=== PATIENT | female | born 1985 | race Caucasian/White ===

== ENCOUNTER 2018-10-31 06:27 | Inpatient (IN) | payer OTHER ==
--- NOTE | 2018-10-31 07:32 | PN ---
L&D Outpatient: Visit - Reproductive Information Estimated Due Date: 11/06/18 Gestational Age: 39 Weeks and 1 Days : 5 Para: 1 - Reason for Visit Visit Reason: Evaluation for labor. Reports UCs q 8-10 min. 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 - Patient History Patient History Significant: Yes Patient History Significant For: H/O Migraine with aura Carpal tunnel syndrome H/O frequent UTIs, not in , lifelong sx of urinary stress incontinence Review of Systems Constitutional: Comfortable CV Complaint: No Respiratory: Shortness of Breath: No Gastrointestinal: No Nausea/Vomiting, Normal Bowel Movement Genitourinary: No Dysuria, No Bleeding, No Leaking Fluid Musculoskeletal: Contractions - Pt reports only feeling them q 8-10 min Neurological: No Headache, No Visual Changes Movement: Normal L&D Outpatient: Exam Vitals - Most Recent: Vital Signs: Temp Pulse Resp BP Pulse Ox 98.6 F 71 22 123/78 100 10/31/18 07:25 10/31/18 07:25 10/31/18 07:25 10/31/18 07:25 10/31/18 07:25 - Cervical Exam Cervical Exam: posterior 1cm/thick/vtx -2 - Abdominal Exam Abdomen Exam: Non-Tender, Fundal Height Consistent with Dates - Membranes Membrane Status: Intact - Ultrasound/Biophysical Profile Ultrasound Status: Not Done EFM Findings - External Monitor Findings Baseline Heart Rate: 130 External Monitor Findings: Accelerations Present, No Pattern of Variable or Late Decelerations, Variability Moderate, Baseline Stable External Monitor Findings Comment: No evidence of metabolic acidemia Contractions: Regular, Mild Contraction Frequency: q 2 min L&D Outpatient: Asses/Plan Assessment: A: IUP at 39-1/7 with regular mild, UCs not in active labor No evidence of metabolic acidemia GDM - A1 P: Continue to monitor. Encourage increased PO fluids. Re-eval in 1-2 hours or sooner PRN
[2018-10-31 08:04] LABS: Urine Benzodiazepine Screen None Detected (None Detect); Urine Opiates Screen None Detected (None Detect)
--- NOTE | 2018-10-31 11:49 | PN ---
Progress Note - Progress Note Date of Service: 10/31/18 Note: S: Pt reports UCs more bothersome, breathing through them. Really hoping to hang out here given that she lives an hour away. Comfortable in room. Has been up and around, on the ball and resting in bed O: BP 115/78 HR 68 FHT 130bpm. Moderate variability. +Accels. No decels UCs q 2-3, mild to moderate VE 2cm/50%/vtx high A: IUP at 39-1/7 in latent labor No evidence of metabolic acidemia P: Given pt's concern re: drive will continue to monitor. Aware that she's not in active labor yet and that we don't recommend admission until onset active labor. Reviewed positioning for comfort, maintaining hydration and energy status with light snacks. Available PRN stronger, more painful UCs or suspects SROM. Will continue to expectantly manage for now.
[2018-10-31] MEDS ORDERED: Lactated Ringers 1000 ML Bag* 1,000 ML IV ONE (13:41)
--- NOTE | 2018-10-31 13:41 | PN ---
Progress Note - Progress Note Date of Service: 10/31/18 Note: S: Pt aware of UCs, breathing through some. Not yet in active labor. Feeling strongly that she would like to stay and have a baby. Very worried given that she lives an hour away. O: BP 115/78 HR 68 FHT 135bpm. Moderate variability. +Accels. No decels UCs q 3-5 min, mild-mod VE 3cm/50%/vtx high A: IUP at 39-1/7 in latent labor No evidence of metabolic acidemia GDM - A1 P: Discussed pros/cons, risks/benefits to augmentation at this time. Pt with strong preference to proceed. Given L&D census will wait until late afternoon/ evening to start. Pt agrees.
--- NOTE | 2018-10-31 13:52 | HP ---
General Information - Reason for Visit IUP at 39-03/08 with GDM - A1 in latent labor. Desires augmentation - General Information Maternal Age: 33 Grav: 5 Para: 1 SAB: 2 IEA: 1 Estimated Due Date: 11/06/18 Determined By: Early Ultrasound Gestational Age in Weeks/Days: 39-7 Maternal Blood Type and Rh: A Positive - Results this Serology/RPR Result: Non-Reactive Rubella Result: Immune HBsAg Result: Negative HIV Result: Negative GBS Culture Result: Negative Past Medical History Delivery History: Hx Uncomplicated Vaginal Delivery Delivery History Comment: 08/2007 8lbs 14oz female. Delivered in [place], [place] Pertinent Past Medical History: See Records Past Medical History Comment: H/O Migraine with aura Carpal Tunnel Syndrome H/O frequent UTIs with associated urinary stress incontinence Pertinent Past Surgical History: None Pertinent Family History: See Records Family History Comment: PGM: , cancer PGF: , cancer - Antepartal Records Antepartal Records: Reviewed, Complicated by: - GDM - A1 Review of Systems Constitutional: Uncomfortable - with some UCs CV Complaint: No Respiratory: Shortness of Breath: No Gastrointestinal: No Nausea/Vomiting Genitourinary: No Dysuria, No Bleeding, No Leaking Fluid Musculoskeletal: Contractions Neurological: No Headache, No Visual Changes Movement: Normal Exam Allergies/Adverse Reactions: Allergies Penicillins Allergy (Verified 10/31/18 07:22) Anaphylatic Shock Vital Signs 10/31/18 07:25 Temperature 98.6 F Pulse Rate 71 Respiratory 22 Rate Blood Pressure 123/78 (mmHg) O2 Sat by Pulse 100 Oximetry Lab Values - Entire Visit: Laboratory Tests 10/31/18 06:51 Urine Opiates Screen None detected Ur Barbiturates Screen None detected Ur Phencyclidine Scrn None detected Ur Amphetamines Screen None detected U Benzodiazepines Scrn None detected Urine Cocaine Screen None detected U Cannabinoids Screen None detected - Measurements Height: 5 ft 5.25 in Weight: 212 lb Weight in lbs: 212.975715 Body Mass Index (BMI): 34.9 Pre- Weight: 148 lb Weight Gained This : 64 lbs and 0 ozs - Exam Breast: Breast Exam Deferred CVA: No CVA Tenderness Extremities: No Edema Heart: Normal Rhythm/Heart Sounds HEENT: No Significant Findings Lungs: Clear Bilaterally Rectal: Rectal Exam Deferred Reflexes: DTR 2+ Thyroid: No Thyromegaly - Abdominal Exam Abdomen Exam: Non-Tender - Ultrasound/Biophysical Profile Ultrasound Status: Not Done Targeted Exam Findings See L&D Outpatient Visit Provider Note for Findings: Yes Estimated Weight: EFW 8lbs by Mihir Cervical Exam: 3cm Effacement: 50% Station: High Presenting Part: Vertex Membrane Status: Intact Sterile Speculum Exam: Not done Bleeding/Discharge: None EFM Findings - External Monitor Findings Baseline Heart Rate: 135 External Monitor Findings: Accelerations Present, No Pattern of Variable or Late Decelerations, Variability Moderate, Baseline Stable External Monitor Findings Comment: No evidence of metabolic acidemia Contractions: Regular, Mild, Moderate Contraction Frequency: q 2-5 min Assessment/Plan - Assessment IUP at 39-1/7 with GDM A1 in latent labor No evidence of metabolic acidemia Social circumstances, [place] [facility] [place] Obstetrical Risk Factors Obstetrical Risk Factors: Gestational Diabetes - A1 - Plan Plan: Admit - Anticipate Vaginal Delivery - Plan augmentation of labor given pt' s preference, GDM at term and [place] [facility] [place] - Date/Time of Admission Date of Admission: 10/31/18 Time of Admission: 13:32
[2018-10-31 16:22] LABS: Hematocrit 35 % (35-47); Hemoglobin 11.5 g/dL (12.0-16.0); Mean Corpuscular HGB Conc 33 g/dL (31-36); Mean Corpuscular Hemoglobin 27 pg (27-31); Mean Corpuscular Volume 82 fL (80-97); Mean Platelet Volume 10.2 fL (7.4-10.4); Platelet Count 175 10^3/uL (150-450); Red Cell Distribution Width 14 % (10-15)
[2018-10-31 16:23] LABS: ABS Eosinophils 0.2 10^3/ul (0-0.6); ABS Lymphocytes 1.3 10^3/ul (1.0-4.8); ABS Monocytes 1.1 10^3/ul (0-0.8); ABS Neutrophils 9.4 10^3/ul (1.5-7.7); Eosinophil % 2.1 %; Lymphocyte % 10.8 %; Nucleated Red Blood Cells % 0.1
--- NOTE | 2018-10-31 16:34 | PN ---
Progress Note - Progress Note Date of Service: 10/31/18 Note: Quick Note: Pt reports UCs feel the same. VE deferred. Cat I FHT. Recommend IV pitocin augmentation. PARQ IV pitocin augmentation. Pt agrees.
[2018-10-31] MEDS ORDERED: Oxytocin in LR* 20 UNITS/1,000 ML BAG IVPB SCH (17:00)
[2018-10-31] MEDS: Lactated Ringers 1000 ML Bag* 1,000 ML IV SCH (17:03)
--- NOTE | 2018-10-31 19:53 | PN ---
Progress Note - Progress Note Date of Service: 10/31/18 Note: S: Pt feels more UCs but still more comfortable then not. Feeling frustrated that labor is taking so long but overall remaining upbeat. O: BP 108/70 HR 73 RR 18 T 98 FHT 135bpm. Moderate variability. +Accels. No decels UCs q 3 min, IV pitocin at 10mu/min VE 2-3/50%/vtx high A: IUP at 39-1/7 in early labor No evidence of metabolic acidemia GDM - A1 P: Continue IV pitocin. Encourage upright positioning and walking to allow fetus to descend into pelvis
--- NOTE | 2018-11-01 01:47 | PN ---
Progress Note - Progress Note Date of Service: 11/01/18 Note: S: Pt breathing through UCs but able to sleep in between. O: BP 118/75 HR 73 T 98.3 RR 17 FHT 135bpm. Moderate variability. +Accels. No decels UCs q 2-3 IV pitocin at 14mu/min VE 2-3cm/50%/vtx high A: IUP at 39-2/7 in early labor, no cervical change from IV pitocin augmentation No evidence of metabolic acidemia GDM A1 P: Lengthy review of options including 1) continue with augmentation given that pt visibly more uncomfortable with UCs or 2) discontinue pitocin and allow her rest so that we can re-evaluate in the morning and go from there. Given Cat I FHT, lack of change and concern re: pt coping chcf without sleep she opts to turn off the pitocin and rest for the remainder of the night. Advised that we can re-check and re-assess in AM and come up with plan. Pt agrees. IV pitocin off. Will discontinue EFM in approximately 30 min if no concerns.
--- NOTE | 2018-11-01 09:21 | PN ---
Progress Note - Progress Note Date of Service: 11/01/18 Note: S: Pt resting in bed. Feeling the occasional contraction. Slept intermittently overnight. O: BP 113/75, temp 98.6, HR 66 FHT 130bpm. Moderate variability. +Accels. No decels UCs q 2-3 VE 2cm/50%/vtx high A: IUP at 39-2/7 in early labor, no cervical change from IV pitocin augmentation GDM A1 VSS No evidence of metabolic acidemia Occasional contraction P: PARQ discussion about labor induction/augmentation with cook catheter and pitocin. Pt in agreement with plan. Cook catheter placed without complication After breakfast, to start Pitocin Anticipate progression to active labor
[2018-11-01] MEDS ORDERED: Oxytocin in LR* 20 UNITS/1,000 ML BAG IVPB SCH (10:00)
--- NOTE | 2018-11-01 12:06 | PN ---
Progress Note - Progress Note Date of Service: 11/01/18 Note: S: Pt sleeping soundly. O: FHT 130bpm. Moderate variability. +Accels. No decels UCs q 3mins VE deferred Pitocin@8 A: IUP at 39-2/7 in early labor GDM A1 VSS No evidence of metabolic acidemia Regular contractions - pt able to sleep through contractions P: Continue to increase Pitocin as tolerated Anticipate progression to active labor
--- NOTE | 2018-11-01 16:13 | PN ---
Progress Note - Progress Note Date of Service: 11/01/18 Note: S: Pt resting in bed. Reports unable to urinate after placement of cook catheter. O: FHT 130bpm. Moderate variability. +Accels. No decels. UCs q 3mins VE: 250/high Pitocin@10 Cook catheter removed A: IUP at 39-2/7 in early labor GDM A1 VSS No evidence of metabolic acidemia Regular contractions Cook catheter removed without complication P: Continue to increase Pitocin as tolerated Consider AROM after pt out of tub Anticipate progression to active labor
--- NOTE | 2018-11-01 17:33 | PN ---
Progress Note - Progress Note Date of Service: 11/01/18 Note: S: Pt feels relaxed after bath. Breathing through contractions. O: FHT 130bpm. Moderate variability, +accels, no decels. UCs q 3mins VE: 2/50/high, bulging bag Pitocin@10 A: IUP at 39-2/7 in early labor GDM A1 VSS No evidence of metabolic acidemia Regular contractions P: PARQ discussion about AROM for labor induction/augmentation. Pt agrees with plan. AROM, clear fluid, pt tolerated well Anticipate progression to active labor
--- NOTE | 2018-11-01 20:00 | PN ---
Progress Note - Progress Note Date of Service: 11/01/18 Note: S: Pt ambulating in room. States contractions are more intense. Continues to leak clear fluid. O: FHT 150bpm. Moderate variability, +accels, no decels. UCs q3-5mins VE: deferred Pitocin@10 A: IUP at 39-2/7 in early labor GDM A1 VSS No evidence of metabolic acidemia Regular contractions P: Continue Pitocin Anticipate progression to active labor
[2018-11-01] MEDS: Lactated Ringers 1000 ML Bag* 1,000 ML IV SCH (20:28)
--- NOTE | 2018-11-01 23:48 | PN ---
Progress Note - Progress Note Date of Service: 11/01/18 Note: S: Pt very uncomfortable with contractions. Requesting pain medication. O: Temp 98.7 FHT 145bpm. Moderate variability, +accels, no decels. UCs q3-4mins VE: 4/70/-1, clear fluid Pitocin@12 A: IUP at 39-2/7 in early labor GDM A1 VSS, afebrile No evidence of metabolic acidemia Regular contractions P: Continue Pitocin Plan for epidural now. Anesthesia aware. Anticipate progression to active labor
[2018-11-01] MEDS ORDERED: OBEPIDURAL* 250 ML EPIDURAL ONE (23:50)
[2018-11-02] MEDS ORDERED: Sodium Citrate/Citric Acid* 15 ML UDC PO PRN (00:40)
[2018-11-02] MEDS ORDERED: Lactated Ringers 1000 ML Bag* 1,000 ML IV ONE (00:40)
[2018-11-02] MEDS ORDERED: Phenylephrine 40 MCG/ML SYRINGE IV PUSH PRN ×2 (00:40)
[2018-11-02] MEDS ORDERED: Famotidine TAB* 20 MG PO PRN (00:40)
[2018-11-02] MEDS ORDERED: OBEPIDURAL* 250 ML EPIDURAL SCH (01:00)
[2018-11-02] MEDS ORDERED: Lactated Ringers 1000 ML Bag* 1,000 ML IV SCH ×2 (01:00→09:00)
--- NOTE | 2018-11-02 04:30 | PN ---
Progress Note - Progress Note Date of Service: 11/02/18 Note: S: Pt resting. CEI infusing. Able to feel contractions low in abdomen. Using epidural self-bolus button. O: FHT 140bpm. Moderate variability, +accels, no decels. UCs q2-4mins VE: 6/90/-1, clear fluid Pitocin@8 A: IUP at 39-2/7 in early labor GDM A1 VSS, afebrile No evidence of metabolic acidemia Regular contractions P: Continue Pitocin until adequate contraction pattern achieved and per tolerance Reposition pt to support optimal benefit from epidural Anticipate progression to
--- NOTE | 2018-11-02 04:30 | PN ---
Progress Note - Progress Note Date of Service: 11/02/18 Note: Pt sleeping, CEI infusing VSS, afebrile VE deferred No evidence of metabolic acidemia Contractions every 3-5 minutes
--- NOTE | 2018-11-02 06:27 | PN ---
Progress Note - Progress Note Date of Service: 11/02/18 Note: S: Pt feeling pressure. O: FHT 140bpm. Moderate variability, +accels, occasional early decels. UCs q2-4mins VE: 9.5/100/0, pink-tinged fluid Pitocin@8 A: IUP at 39-2/7 in labor GDM A1 VSS, afebrile No evidence of metabolic acidemia Regular contractions P: Anticipate progression to
[2018-11-02] MEDS ORDERED: Witch Hazel PAD* JAR TOPICAL PRN (08:24)
[2018-11-02] MEDS ORDERED: Glycerin ADULT SUPP PR PRN (08:24)
[2018-11-02] MEDS ORDERED: Misoprostol TAB* 200 MCG PR ONE (08:24)
[2018-11-02] MEDS ORDERED: Dibucaine 1% 28.35 GM TUBE PR PRN (08:24)
[2018-11-02] MEDS ORDERED: Simethicone TAB* 80 MG TAB.CHEW PO SCH (08:30)
--- NOTE | 2018-11-02 08:39 | PROCNOTE ---
[facility] OB: Delivery Note - Delivery A Date of : 11/02/18 Time of : 07:49 [place] Sex: Female Score 1 Minute: 9 Score 5 Minutes: 9 Gestational Age in Weeks and Days at Delivery: 39 Weeks and 3 Days Delivery Method: Spontaneous Vaginal Labor: Spontaneous Did Patient attempt ?: N/A, No Previous Amniotic Fluid: Clear Estimated Blood Loss: 600 Anesthesia/Analgesia: CEI for Labor - Nursery Level of Nursery: Regular/Bedside - Perineum Perineal Injury: Perineal Laceration, 1st Degree Perineal Injury Comment: Repaired with 3-0 rapide Perineal Repair: By Delivering Practioner - Events Delivery Events of Note: Pitocin During Labor, Protracted/Long Labor, Post- Bleeding - Meds Given - Additional Delivery Notes Additional Delivery Notes: 33 yo G5, now P2 at 39+3 weeks admitted in early labor. Labor augmented with Pitocin, Cook catheter, and AROM - clear fluid. Pt began pushing spontaneously at 0700, with of liveborn female at 0749. OA to DAIANA, shoulders followed easily. to mother's chest, dried and stimulated with spontaneous cry. 's 9 and 9. Delayed cord clamping, cord then cut by FOB. Spontaneous chiquita delivery of intact placenta at 0755. Brisk bleeding noted after delivery of the placenta. Fundal massage ensued, IVPB Pitocin infusing, 800mcg of misoprostol given CT. Fundus firmed, bleeding ceased. EBL 600mL. After careful inspection a first degree perineal laceration was identified and repaired in the usual fashion. Normal anatomy restored, hemostasis achieved. . Mother and infant in stable condition at time of note.
[2018-11-02] MEDS ORDERED: Oxytocin in LR* 20 UNITS/1,000 ML BAG IVPB SCH (09:00)
[2018-11-02] MEDS ORDERED: Lidocaine 1% INJ* 10 MG/ML 30 ML SDV ONE (09:40)
[2018-11-02] MEDS: Docusate CAP* 100 MG PO SCH ×3 (09:44→21:06)
[2018-11-02] MEDS: Ibuprofen TAB* 600 MG PO PRN ×2 (09:44→16:50)
[2018-11-02] MEDS ORDERED: Ammonia Inhalant* 1 EA AMP ONE (10:26)
[2018-11-02] MEDS: Acetaminophen TAB* 325 MG PO PRN ×3 (11:59→21:06)
[2018-11-03] MEDS: Ibuprofen TAB* 600 MG PO PRN ×4 (01:38→20:37)
[2018-11-03] MEDS: Acetaminophen TAB* 325 MG PO PRN ×3 (01:38→11:54)
[2018-11-03 06:23] LABS: ABS Basophils 0.2 10^3/ul (0-0.2); ABS Eosinophils 0.4 10^3/ul (0-0.6); ABS Lymphocytes 2.1 10^3/ul (1.0-4.8); ABS Neutrophils 8.1 10^3/ul (1.5-7.7); Eosinophil % 3.6 %; Hematocrit 25 % (35-47); Hemoglobin 8.4 g/dL (12.0-16.0); Mean Corpuscular HGB Conc 33 g/dL (31-36); Mean Corpuscular Hemoglobin 27 pg (27-31); Mean Corpuscular Volume 83 fL (80-97); Mean Platelet Volume 9.4 fL (7.4-10.4); Platelet Count 135 10^3/uL (150-450); Red Blood Count 3.07 10^6 /uL (3.70-4.87); Red Cell Distribution Width 15 % (10-15); White Blood Count 11.8 10^3/uL (3.5-10.8)
[2018-11-03] MEDS: Ferrous Gluconate TAB* 324 MG TAB PO SCH ×2 (08:01→21:00)
[2018-11-03] MEDS: Docusate CAP* 100 MG PO SCH ×4 (08:01→21:00)
[2018-11-04 07:28] LABS: Hematocrit 26 % (35-47); Hemoglobin 8.8 g/dL (12.0-16.0)
[2018-11-04] MEDS: Docusate CAP* 100 MG PO SCH (09:22)
[2018-11-04] MEDS: Ibuprofen TAB* 600 MG PO PRN (09:36)
[2018-11-04] MEDS: Ferrous Gluconate TAB* 324 MG TAB PO SCH (09:37)
[2018-11-04] MEDS: Acetaminophen TAB* 325 MG PO PRN (09:37)
[2018-11-04 12:41] VITALS: BP 115/65
== END 2018-11-04 12:00 | disposition home or self-care (01) | DRG 560 ==
LOC: MCHOBOUT 06:27 → MCHOB 13:32
PROVIDERS: ADMIT Midwife; ATTEND Advanced Practice Midwife
PROC: 4A1HXCZ Monitoring of Products of Conception, Cardiac Rate, External Approach (ICD-10-PCS; 2018-10-31)
PROC: 3E033VJ Introduction of Other Hormone into Peripheral Vein, Percutaneous Approach (ICD-10-PCS; 2018-10-31)
PROC: 10E0XZZ Delivery of Products of Conception, External Approach (ICD-10-PCS; principal; 2018-11-02)
PROC: 10907ZC Drainage of Amniotic Fluid, Therapeutic from Products of Conception, Via Natural or Artificial Opening (ICD-10-PCS; 2018-11-02)
PROC: 0HQ9XZZ Repair Perineum Skin, External Approach (ICD-10-PCS; 2018-11-02)
PROC: 0U7C7ZZ Dilation of Cervix, Via Natural or Artificial Opening (ICD-10-PCS; 2018-11-02)
DX: O24.429 Gestational diabetes mellitus in childbirth, unspecified control (principal); O72.1 Other immediate postpartum hemorrhage; Z37.0 Single live birth; O90.81 Anemia of the puerperium; O70.0 First degree perineal laceration during delivery; O63.1 Prolonged second stage (of labor); O76 Abnormality in fetal heart rate and rhythm complicating labor and delivery; Z3A.39 39 weeks gestation of pregnancy; Z88.0 Allergy status to penicillin; Z87.440 Personal history of urinary (tract) infections
CPT/HCPCS: 36415; 80307; 85014; 85018; 85025; 85060; 86850; 86900; 86901; A9270-GY

== ENCOUNTER → 2019-01-14 09:15 | Day surgery (SDC) | payer OTHER ==
[~2019-01-14 09:15] MED LIST: Buffered Lidocaine 1% SYRIN* 1 ML/SYRINGE INTRADERM ONE; Dexamethasone IV* 4 MG/ML 1 ML (4 MG) IV SLOW PU ONE; Dexamethasone IV* 4 MG/ML 1 ML (4 MG) ONE; DiMENhydriNATE IV* 50 MG/ML VIAL IV PUSH PRN; EPHEDrine (Pressors)* 50 MG/ML VIAL ONE; Famotidine IV* 10 MG/ML 2 ML (20 mg) IV ONE; Famotidine IV* 10 MG/ML 2 ML (20 mg) ONE; Ketorolac INJ* 30 MG/ML 1 ML VIAL ONE; Lactated Ringers 1000 ML Bag* 1,000 ML IV SCH; Lidocaine 2% PF * 5 ML VIAL ONE; Midazolam* 1 MG/ML 5 ML VIAL (5 MG) ONE; Naloxone* 0.4 MG/ML 1 ML VIAL IV PRN; Ondansetron INJ* 2 MG/ML VIAL IV PRN; Ondansetron INJ* 2 MG/ML VIAL ONE; Phenylephrine 40 MCG/ML SYRINGE ONE; Propofol* 10 MG/ML 20 ML BTL ONE; Scopolamine 1.5 mg* PATCH TRANSDERM PRN; Succinylcholine* 20 MG/ML 10 ML VIAL ONE; fentaNYL* 50 MCG/ML 2 ML VIAL (100 MCG VIAL) IV PRN; fentaNYL* 50 MCG/ML 5 ML VIAL (250 MCG VIAL) ONE; oxyCODONE/Acetamin 5/325 MG* TAB PO PRN
[2019-01-14 11:45] LABS: Hematocrit 41 % (35-47); Hemoglobin 13.8 g/dL (12.0-16.0); Mean Corpuscular HGB Conc 34 g/dL (31-36); Mean Corpuscular Hemoglobin 28 pg (27-31); Mean Corpuscular Volume 82 fL (80-97); Mean Platelet Volume 8.6 fL (7.4-10.4); Platelet Count 291 10^3/uL (150-450); Red Blood Count 4.98 10^6 /uL (3.70-4.87); Red Cell Distribution Width 16 % (10-15); White Blood Count 8.2 10^3/uL (3.5-10.8)
[2019-01-14 12:51] LABS: ABS Basophils 0.1 10^3/ul (0-0.2); ABS Eosinophils 0.3 10^3/ul (0-0.6)
[2019-01-14 15:28] VITALS: BP 108/56
--- NOTE | 2019-01-15 13:04 | OP ---
Operative Report - Blank - Operative Report Date of Operation: 01/15/19 Note: Pre-operative Diagnosis: desires permanent sterilization Post-op diagnosis: same Procedure: laparoscopic bilateral tubal fulguration Surgeon: Haider Matos DO Engineering Director: Marshall Lennon MD Anesthesia: General Endotracheal EBL: 25mL IVF: 850mL UOP: 150ml Specimen: none Condition: stable to recovery room Complications: none Finding: retroverted uterus, normal fallopian tubes and ovaries bilaterally Consent: I saw the patient in the outpatient setting as well as in the pre- operative area prior to the procedure and carefully discussed the risks, benefits, alternatives to this procedure, as well as it's permanence and irreversibility. She expressed clear understanding that tubal ligation is a form of permanent sterilization. The operative risks include possible injury to internal organs and intra-abdominal bleeding. There is also a small risk that the procedure will fail, which may result in future or ectopic . The patient expressed understanding to all of the above and wished to proceed. Written consent was obtained. Procedure: Pt taken to the OR with IV fluids running. General Anesthesia was obtained without difficulty. Pneumatic compression stockings were applied to the lower extremities. Pt was placed in the dorsal lithotomy position with yellow fin stirrups. Exam under anesthesia revealed a normal sized retroverted uterus. The patient was prepped and draped and the bladder was emptied. A speculum was placed into the vagina. The anterior lip of the cervix was grasped with a single toothed tenaculum. A hulka was applied to the anterior lip of the cervix without difficulty. Attention was then turned to the abdomen. 0.25% Marcaine with epi was infiltrated subcutaneously into the inferior portion of the umbilicus. Valeri clamps were used to angel the umbilicus and an incision was made. The fascia was grasped with Rush clamps x 2 and incised and the peritoneum entered sharply with metzenbaum scissors. The Alvarenga trochar was placed without difficulty. The pneumoperitoneum was established with CO2 gas to a pressure of 15mm Hg. A 10mm operative scope was placed and intraabdominal survey performed revealing a normal appearing liver, gallbladder and spleen and lack of any visceral or vascular injury. A small hematoma was noted midline on the lower uterine segment, while there was no evidence of perforation or bleeding intraabdominally, the decision was made to remove the Hulka uterine manipulator and replace it with a sponge on a stick for safer uterine manipulation. Small vaginal bleeding was noted at time of Hulka removal. The uterus appeared severely retroverted and it was difficult to obtain adequate visualization of the fallopian tubes bilaterally to perform the tubal ligation with the operative scope. Decision was made to switch to a normal 10mm scope and place two additional port sites in the right and left lower quadrants respectively to aid in uterine manipulation in order to perform the tubal ligation. Two 5mm ports were placed bilaterally under direct visualization without complication. The patient was placed in slight trendelenburg and the bowel was swept out of the operative field. The uterus was then elevated from the pelvis using the sponge on a sponge stick in the vagina and a blunt grasper intraabdominally. The isthmic portion of the left fallopian tube was grasped with the Kleppinger bipolar device and elevated away from surrounding structures. Complete fulguration was seen by the cessation of bubbling at the site of coagulation and the toning down of the bipolar device. Three additional fulgurations of continuous areas were performed with a total of at least 3cm of the fallopian tube burned. the right fallopian tube was fulgurated in a similar fashion. No bleeding was noted at the fulguration sites. The small hematoma noted initially in the midline of the lower uterine segment was observed throughout the procedure and again seen at the end with no evidence of change or expansion. The patient tolerated the procedure well. All instruments were removed from the abdomen and vagina. The cervix and vagina were carefully inspected at the end of the case and there was no active vaginal bleeding. All counts were correct times two. The patient was taken to the recover room in stable condition. DO SAKSHI Whitmore
== END | disposition home or self-care (01) ==
LOC: OR 09:15
PROVIDERS: ATTEND Obstetrics & Gynecology
DX: Z30.2 Encounter for sterilization (principal); G43.109 Migraine with aura, not intractable, without status migrainosus; J45.909 Unspecified asthma, uncomplicated; F17.210 Nicotine dependence, cigarettes, uncomplicated
CPT/HCPCS: 36415; 81025; 85025; 85060; 86850; 86900; 86901; J0330; J1100; J1885; J2250; J2405; J2704; J3010

== ENCOUNTER 2019-02-03 08:28 | Day surgery (SDC) | payer OTHER ==
[~2019-02-03 08:28] MED LIST changes: -Dexamethasone IV* 4 MG/ML 1 ML (4 MG) IV SLOW PU ONE; -Dexamethasone IV* 4 MG/ML 1 ML (4 MG) ONE; -DiMENhydriNATE IV* 50 MG/ML VIAL IV PUSH PRN; -EPHEDrine (Pressors)* 50 MG/ML VIAL ONE; -Famotidine IV* 10 MG/ML 2 ML (20 mg) IV ONE; -Famotidine IV* 10 MG/ML 2 ML (20 mg) ONE; -Ketorolac INJ* 30 MG/ML 1 ML VIAL ONE; -Lidocaine 2% PF * 5 ML VIAL ONE; -Midazolam* 1 MG/ML 5 ML VIAL (5 MG) ONE; -Naloxone* 0.4 MG/ML 1 ML VIAL IV PRN; -Ondansetron INJ* 2 MG/ML VIAL IV PRN; -Ondansetron INJ* 2 MG/ML VIAL ONE; -Phenylephrine 40 MCG/ML SYRINGE ONE; -Propofol* 10 MG/ML 20 ML BTL ONE; -Scopolamine 1.5 mg* PATCH TRANSDERM PRN; -Succinylcholine* 20 MG/ML 10 ML VIAL ONE; -fentaNYL* 50 MCG/ML 2 ML VIAL (100 MCG VIAL) IV PRN; -fentaNYL* 50 MCG/ML 5 ML VIAL (250 MCG VIAL) ONE; -oxyCODONE/Acetamin 5/325 MG* TAB PO PRN
[2019-02-03] MEDS ORDERED: Bupivacaine 0.25% SDV* 30 ML ONE (08:49)
[2019-02-03] MEDS ORDERED: Ondansetron INJ* 2 MG/ML VIAL ONE (09:24)
[2019-02-03] MEDS ORDERED: fentaNYL* 50 MCG/ML 2 ML VIAL (100 MCG VIAL) ONE (09:24)
[2019-02-03] MEDS ORDERED: Propofol* 10 MG/ML 20 ML BTL ONE (09:24)
[2019-02-03] MEDS ORDERED: Dexamethasone IV* 4 MG/ML 1 ML (4 MG) ONE (09:24)
[2019-02-03] MEDS ORDERED: Midazolam* 1 MG/ML 2 ML VIAL (2 MG) ONE (09:25)
[2019-02-03] MEDS ORDERED: Lidocaine 2% PF * 5 ML VIAL ONE (09:32)
[2019-02-03] MEDS ORDERED: Ketorolac INJ* 30 MG/ML 1 ML VIAL ONE (10:04)
[2019-02-03] MEDS ORDERED: fentaNYL* 50 MCG/ML 2 ML VIAL (100 MCG VIAL) IV PRN (10:09)
[2019-02-03] MEDS ORDERED: Naloxone* 0.4 MG/ML 1 ML VIAL IV PRN (10:09)
[2019-02-03] MEDS ORDERED: Ondansetron INJ* 2 MG/ML VIAL IV PRN (10:09)
[2019-02-03 11:06] VITALS: BP 100/59
--- NOTE | 2019-02-03 20:22 | OP ---
DATE OF OPERATION: 02/03/19 [facility] DATE OF : 89 SURGEON: Spencer Calero MD PRODUCTION ZONE LEADER: None. ANESTHESIOLOGIST: Dr. Valle. ANESTHESIA: General. PRE-OP DIAGNOSIS: Left carpal tunnel syndrome. POST-OP DIAGNOSIS: Left carpal tunnel syndrome. OPERATIVE PROCEDURE: Left endoscopic carpal tunnel release. INDICATIONS: Linette has carpal tunnel syndrome. It has been progressive. We talked about treatment options. She wanted to proceed with the release. She understands the risks associated with this. ESTIMATED BLOOD LOSS: 2 mL. COMPLICATIONS: None. FINDINGS: See above and below. DESCRIPTION OF PROCEDURE: Ms. Harp was seen in the preoperative holding area. The correct site, side, and procedure were identified. We came back to the operating room where the arm was prepped and draped in the usual fashion and a time- out was performed. The arm was exsanguinated with the Esmarch and the tourniquet was inflated to 225 mmHg. I made a 1 cm transverse incision just ulnar to the palmaris longus tendon. Dissection was carried down. The distal antebrachial fascia was spread transversely. A 2-prong skin hook was placed. The carpal tunnel was dilated open. The MicroAire endoscopic carpal tunnel system was introduced into the carpal tunnel. When I had it in the appropriate location, I elevated the blade and the release was carried out from distal to proximal. I then released the distal antebrachial fascia proximally. At this point, the release was looking very good. I went ahead and irrigated out the wound. Skin was closed with a 4- 0 Prolene suture and a Steri-Strip. Marcaine was infiltrated. She was taken to the recovery room in stable condition. [id number]/[facility] #: [id number] MTDD
== END 2019-02-03 11:25 | disposition home or self-care (01) ==
LOC: OREAST 08:28
PROVIDERS: ATTEND Orthopaedic Surgery Hand Surgery
PROC: 01N54ZZ Release Median Nerve, Percutaneous Endoscopic Approach (ICD-10-PCS; principal; 2019-02-03 09:30)
DX: G56.03 Carpal tunnel syndrome, bilateral upper limbs (principal); F17.210 Nicotine dependence, cigarettes, uncomplicated; Z98.51 Tubal ligation status
CPT/HCPCS: 81025; J1100; J1885; J2250; J2405; J2704; J3010; J3490

== ENCOUNTER 2019-02-17 09:02 | Day surgery (SDC) | payer OTHER ==
[~2019-02-17 09:02] MED LIST changes: +Dexamethasone IV* 4 MG/ML 1 ML (4 MG) IV SLOW PU ONE; +Famotidine IV* 10 MG/ML 2 ML (20 mg) IV ONE
[2019-02-17] MEDS ORDERED: Dexamethasone IV* 4 MG/ML 1 ML (4 MG) ONE (09:19)
[2019-02-17] MEDS ORDERED: Famotidine IV* 10 MG/ML 2 ML (20 mg) ONE (09:21)
[2019-02-17] MEDS ORDERED: Bupivacaine 0.25% SDV* 30 ML ONE (10:03)
[2019-02-17] MEDS ORDERED: fentaNYL* 50 MCG/ML 5 ML VIAL (250 MCG VIAL) ONE (10:09)
[2019-02-17] MEDS ORDERED: Midazolam* 1 MG/ML 5 ML VIAL (5 MG) ONE (10:09)
[2019-02-17] MEDS ORDERED: Ondansetron INJ* 2 MG/ML VIAL ONE (10:10)
[2019-02-17] MEDS ORDERED: Propofol* 10 MG/ML 20 ML BTL ONE (10:10)
[2019-02-17] MEDS ORDERED: Ketorolac INJ* 30 MG/ML 1 ML VIAL ONE (10:10)
[2019-02-17] MEDS ORDERED: Naloxone* 0.4 MG/ML 1 ML VIAL IV PRN (10:34)
[2019-02-17] MEDS ORDERED: Ondansetron INJ* 2 MG/ML VIAL IV PRN (10:34)
[2019-02-17] MEDS ORDERED: oxyCODONE/Acetamin 5/325 MG* TAB PO PRN (10:34)
[2019-02-17] MEDS ORDERED: DiMENhydriNATE IV* 50 MG/ML VIAL IV PUSH PRN (10:34)
[2019-02-17 11:32] VITALS: BP 125/80
--- NOTE | 2019-02-17 18:25 | OP ---
DATE OF OPERATION: 02/17/19 [facility] DATE OF : 89 SURGEON: Spencer Calero MD TOWEL INSPECTOR: WALLACE Wallis ANESTHESIOLOGIST: Dr. Tobar. ANESTHESIA: General. PRE-OP DIAGNOSIS: Right carpal tunnel syndrome. POST-OP DIAGNOSIS: Right carpal tunnel syndrome. OPERATIVE PROCEDURE: Right endoscopic carpal tunnel release. INDICATIONS: Linette has the aforementioned carpal tunnel syndrome. We have done her left; that is doing well. She presents today for the right side. She understands there is risk. ESTIMATED BLOOD LOSS: 2 mL. COMPLICATIONS: None. FINDINGS: See above and below. DESCRIPTION OF PROCEDURE: Ms. Harp was seen in the preoperative holding area. The correct site, side and procedure were identified. We came back to the operating room. The arm was prepped and draped in the usual fashion and a time- out was performed. The arm was exsanguinated with the Esmarch and the tourniquet was inflated to 225 mmHg. I made a 1 cm incision just ulnar to the palmaris longus tendon. I bluntly spread down transversely through the distal antebrachial fascia. A two- pronged skin hook was placed underneath the fascia. I then went ahead and dilated, opened the carpal tunnel. The MicroAire Endoscopic Carpal Tunnel System was introduced. I went ahead in the appropriate location. I elevated the blade and the release was carried out from distal to proximal. Once I had fully released the ligament and confirmed that distally, I went ahead and released that distal antebrachial fascia proximally. The wound was irrigated out. The skin was closed with 4-0 Prolene suture and Steri-Strips. 0.25% Marcaine was infiltrated. The wound was dressed with a soft dressing. She was taken to the recovery room in stable condition. [id number]/[facility] #: [id number] MTDD
== END 2019-02-17 12:11 | disposition home or self-care (01) ==
LOC: OREAST 09:02
PROVIDERS: ATTEND Orthopaedic Surgery Hand Surgery
DX: G56.01 Carpal tunnel syndrome, right upper limb (principal); F17.200 Nicotine dependence, unspecified, uncomplicated
CPT/HCPCS: J1100; J1885; J2250; J2405; J2704; J3010; J3490

== ENCOUNTER 2019-02-25 17:41 | Emergency (ER) | payer OTHER ==
--- OUTSIDE RECORDS SUMMARY | 2019-02-25 17:47 | XMS REPORT | Continuity of Care Document ---
:1985 External Reference #:[id number] Author Name Spencer Calero MD (transmitted by agent of provider Jihan Dowell) Address [address] [place] [address] Care Team Providers Name Role Phone Michele Armenta DO - Family Medicine Care Team Information Internist Patient's Choice Care Team Information Internist Unavailable Problems Active Problems Provider Date Bilateral carpal tunnel syndrome Spencer Calero MD Onset: 01/29/2018 Social History Type Date Description Comments Sex Unknown ETOH Use Drinks 2 Alcoholic Beverages Per Week Tobacco Use Start: Unknown Patient is a current smoker, smokes some days Recreational Drug Use Sporadically uses Marijuana Smoking Status Reviewed: 01/19/19 Patient is a current smoker, smokes some days Exercise Type/Frequency Exercises regularly Allergies, Adverse Reactions, Alerts Active Allergies Reaction Severity Comments Date Penicillin liquid form 01/29/2018 Medications Description No Active Medications Immunizations CPT Code Status Date Vaccine Lot # [id number] Given 06/04/1999 Hep B Pediatric/Adolescent 52866 Given 01/29/1999 Hep B Pediatric/Adolescent 35446 Given 01/01/1999 Hep B Pediatric/Adolescent 37738 Given 10/03/1992 Poliovirus Vaccine OPV Live Oral Use 99255 Given 10/03/1992 Measles Mumps And Rubella MMR 72867 Given 10/03/1992 DTP Vaccine Vital Signs Date Vital Result Comment 01/19/2019 9:01am Height 66 inches 5'6" Weight 170.00 lb Heart Rate 88 /min BP Systolic 98 mmHg BP Diastolic 62 mmHg Respiratory Rate 18 /min Body Temperature 97.7 F Pain Level 5 BMI (Body Mass Index) 27.4 kg/m2 12/07/2018 11:06am Height 66 inches 5'6" Weight 174.00 lb Heart Rate 68 /min BP Systolic 112 mmHg BP Diastolic 60 mmHg Respiratory Rate 16 /min Body Temperature 98.0 F Pain Level 5 c/o numbness/tingling BMI (Body Mass Index) 28.1 kg/m2 Results Description No Information Available Procedures Description No Information Available Medical Devices Description No Information Available Encounters Type Date Location Provider Dx Diagnosis Office Visit 12/07/2018 [facility] Spencer Calero, G56.03 Carpal tunnel 11:00a at [facility] syndrome, bilateral upper limbs Assessments Date Code Description Provider 01/19/2019 G56.03 Carpal tunnel syndrome, bilateral upper limbs Spencer Calero MD 12/07/2018 G56.03 Carpal tunnel syndrome, bilateral upper limbs Spencer Calero MD Plan of Treatment Future Appointment(s):02/17/2019 11:00 am - Spencer Calero MD at [facility] at [place]/03/2019 8:30 am - Spencer Calero MD at [facility] at [place]/19/2019 - Spencer Calero MDG56.03 Carpal tunnel syndrome, bilateral upper limbsFollow up:Follow up: 10-14 days postop Functional Status Description No Information Available Mental Status Description No Information Available Referrals Description No Information Available
--- OUTSIDE RECORDS SUMMARY | 2019-02-25 17:47 | XMS REPORT | Continuity of Care Document ---
:1985 External Reference #:[id number] Author Name Alfredo Matos JR, DO Address [address] [facility] [facility], [place] [address] Problems Active Problems Provider Date Gestational diabetes mellitus Ramon Parker CNM Onset: 08/27/2018 Resolved Problems Multigravida Ramon Parker CNM Onset: 08/27/2018 Resolved: 11/02/2018 Social History Type Date Description Comments Sex Unknown Cigarette Use Current Cigarette Smoker ETOH Use Currently consumes alcohol Recreational Drug Use Regularly uses Marijuana Tobacco Use Start: Unknown Patient is a current smoker, smokes every day Smoking Status Reviewed: 12/29/18 Patient is a current smoker, smokes every day Seat Belt/Car Seat Always uses seat belt Allergies, Adverse Reactions, Alerts Active Allergies Reaction Severity Comments Date Penicillin Difficulty breathing, Difficulty Severe 04/26/2018 swallowing, Tongue swelling Medications Active Medications SIG Qnty Indications Ordering Provider Date Kat 1 by mouth 84tabs Amara Kapadia 12/07/2018 0.35mg Tablets every day, take ENRIQUETA Hay at the same time each day Valacyclovir HCL 1 PO daily 30tabs Ramon Parker CNM 09/20/2018 1gm Tablets History Medications Blood Glucose use as directed 1Monitor Ramon Parker 08/27/2018 - Monitoring System ENRIQUETA 11/02/2018 W/Device Kit Lancets for use with blood 100units Ramon Parker 08/27/2018 - [place] glucose monitor. ENRIQUETA 11/02/2018 use as directed four times a day Blood Glucose Test for use with blood 1Box Ramon Parker 08/27/2018 - glucose monitor. ENRIQUETA 11/02/2018 Strips use as directed 4x/day Alcohol Pads use to clean skin 1Box Ramon Parker, 08/27/2018 - 70% Pads prior to blood CNM 11/02/2018 glucose testing as directed Permethrin Massage into skin 60gm Ramon Parker, 08/09/2018 - 5% Cream from neck to soles CNM 08/23/2018 of the feet including under finger/toenails. Wash off in 8-14 hrs. Treat overnight. Repeat x 1 in 2wks Immunizations Description No Information Available Vital Signs Date Vital Result Comment 12/29/2018 11:42am BP Systolic 102 mmHg BP Diastolic 64 mmHg Height 65.25 inches 5'5.25" Weight 169.00 lb BMI (Body Mass Index) 27.9 kg/m2 Last Menstrual Period [id number] 5 Parity 2 12/22/2018 8:38am BP Systolic 120 mmHg BP Diastolic 80 mmHg Height 65.25 inches 5'5.25" Weight 169.00 lb BMI (Body Mass Index) 27.9 kg/m2 Last Menstrual Period [id number] 5 Parity 2 Results Test Acquired Date Facility Test Result H/L Range Note Glucose 12/22/2018 [facility] Glucose (SEE NOTE) 1, 2 Tolerance [address] [place] [address] Tolerance Test [phone] 2HR Urine Drug SCR 10/31/2018 [facility] Urine None None ED & [place] [address] Amphetamine Detected Detect Clinic [phone] Screen Urine Barbiturates Screen None Detected None Detect Urine Benzodiazepine Screen None Detected None Detect Urine Cannabinoids Screen None Detected None Detect Urine Cocaine Screen None Detected None Detect Urine Opiates Screen None Detected None Detect Urine Phencyclidine Screen None Detected None Detect 3 Laboratory test 10/18/2018 [facility] Group B Strep SEE RESULT 4, 5 [place] [address] Culture Screen BELOW [phone] Urine Drug Comp 09/20/2018 [facility] Urine Negative 6 20 [place] [address] Amphetamine ng/mL [phone] Urine Barbiturates Negative ng/mL 7 Urine Benzodiazepines Negative ng/mL 8 Urine Cocaine Negative ng/mL 9 Urine Phencyclidine Negative ng/mL Cutoff: 25 Urine Tetrahydrocannabinol Negative ng/mL Cutoff: 50 10 Creatinine, Urine 42.0 mg/dL Specific [place] 1.011 pH 5.9 Oxidants Negative 11 Adulterants Comment Normal Codeine, Ur Not Detected ng/mL Cutoff: 25 12 Pbyinsi-5-upuj-glucuronide, Ur Not Detected ng/mL 13 Morphine, Ur Not Detected ng/mL Cutoff: 25 14 Dkkvvscy-6-szxj-glucuronide, U Not Detected ng/mL 15 6-monoacetylmorphine, Ur Not Detected ng/mL Cutoff: 25 16 Hydrocodone, Ur Not Detected ng/mL Cutoff: 25 17 Norhydrocodone, Ur Not Detected ng/mL Cutoff: 25 18 Dihydrocodeine, Ur Not Detected ng/mL Cutoff: 25 19 Hydromorphone, Ur Not Detected ng/mL Cutoff: 25 20 Pnqvjzsqvcavw5qsnrilzhlriouyq Not Detected ng/mL 21 Oxycodone, Ur Not Detected ng/mL Cutoff: 25 22 Noroxycodone, Ur Not Detected ng/mL Cutoff: 25 23 Oxymorphone, Ur Not Detected ng/mL Cutoff: 25 24 Kvhvmjvjkwu-3-dmyh-glucuronide Not Detected ng/mL 25 Noroxymorphone, Ur Not Detected ng/mL Cutoff: 25 26 Fentanyl, Ur Not Detected ng/mL Cutoff: 2 27 Norfentanyl, Ur Not Detected ng/mL Cutoff: 2 28 Meperidine, Ur Not Detected ng/mL Cutoff: 25 29 Normeperidine, Ur Not Detected ng/mL Cutoff: 25 30 Naloxone, Ur Not Detected ng/mL Cutoff: 25 31 Fsbfekrj-8-uemn-glucuronide, U Not Detected ng/mL 32 Methadone, Ur Not Detected ng/mL Cutoff: 25 33 Eddp, Ur Not Detected ng/mL Cutoff: 25 34 Propoxyphene, Ur Not Detected ng/mL Cutoff: 25 35 Norpropoxyphene, Ur Not Detected ng/mL Cutoff: 25 36 Tramadol, Ur Not Detected ng/mL Cutoff: 25 37 O-desmethyltramadol, Ur Not Detected ng/mL Cutoff: 25 38 Tapentadol, Ur Not Detected ng/mL Cutoff: 25 39 N-desmethyltapentadol, Ur Not Detected ng/mL Cutoff: 50 40 Qvbfglhkuu-rufe-ctwlvblfkab, U Not Detected ng/mL 41 Buprenorphine, Ur Not Detected ng/mL Cutoff: 5 42 Norbuprenorphine, Ur Not Detected ng/mL Cutoff: 5 43 Norbuprenorphine glucuronide Not Detected ng/mL Cutoff: 20 44 Opioid Interpretation See Comment 45 Glucose 08/26/2018 [facility] GTT 3HR (SEE NOTE) 46 Tolerance [address]HR [place] [address] Gestational Gestational [phone] CBC With No Diff 08/26/2018 [facility] White Blood 11.8 High 3.5-1 [place] [address] Count 10^3/uL 0.8 [phone] Red Blood Count 3.62 10^6/uL Low 3.70-4.87 Hemoglobin 10.8 g/dL Low 12.0-16.0 Hematocrit 32 % Low 35-47 Mean Corpuscular Volume 89 fL Normal 80-97 Mean Corpuscular Hemoglobin 30 pg Normal 27-31 Mean Corpuscular HGB Conc 34 g/dL Normal 31-36 Red Cell Distribution Width 14 % Normal 10-15 Platelet Count 253 10^3/uL Normal 150-450 Mean Platelet Volume 9.0 fL Normal 7.4-10.4 Laboratory 08/19/2018 [facility] Glucose 1 HR 156 mg/dL Normal 70-160 47 [place] [address] Post Prandial [phone] Urine Drug 07/20/2018 [facility] Urine Negative 48 Comp [address] [place] [address] Amphetamine ng/mL [phone] Urine Barbiturates Negative ng/mL 49 Urine Benzodiazepines Negative ng/mL 50 Urine Cocaine Negative ng/mL 51 Urine Phencyclidine Negative ng/mL Cutoff: 25 Urine Tetrahydrocannabinol Presumptive Posi <SEE NOTE> Abnormal Cutoff: 50 52 ng/mL Creatinine, Urine 77.0 mg/dL Specific [place] 1.010 pH 5.9 Oxidants Negative 53 Adulterants Comment Normal Codeine, Ur Not Detected ng/mL Cutoff: 25 54 Tjhflmr-9-xxwi-glucuronide, Ur Not Detected ng/mL 55 Morphine, Ur Not Detected ng/mL Cutoff: 25 56 Imvvcpzs-6-sxab-glucuronide, U Not Detected ng/mL 57 6-monoacetylmorphine, Ur Not Detected ng/mL Cutoff: 25 58 Hydrocodone, Ur Not Detected ng/mL Cutoff: 25 59 Norhydrocodone, Ur Not Detected ng/mL Cutoff: 25 60 Dihydrocodeine, Ur Not Detected ng/mL Cutoff: 25 61 Hydromorphone, Ur Not Detected ng/mL Cutoff: 25 62 Pqbtwgwhowdoa1naejugpppeewnvm Not Detected ng/mL 63 Oxycodone, Ur Not Detected ng/mL Cutoff: 25 64 Noroxycodone, Ur Not Detected ng/mL Cutoff: 25 65 Oxymorphone, Ur Not Detected ng/mL Cutoff: 25 66 Mrnsjekkneb-9-nwxq-glucuronide Not Detected ng/mL 67 Noroxymorphone, Ur Not Detected ng/mL Cutoff: 25 68 Fentanyl, Ur Not Detected ng/mL Cutoff: 2 69 Norfentanyl, Ur Not Detected ng/mL Cutoff: 2 70 Meperidine, Ur Not Detected ng/mL Cutoff: 25 71 Normeperidine, Ur Not Detected ng/mL Cutoff: 25 72 Naloxone, Ur Not Detected ng/mL Cutoff: 25 73 Jhxgtdrw-4-xgwl-glucuronide, U Not Detected ng/mL 74 Methadone, Ur Not Detected ng/mL Cutoff: 25 75 Eddp, Ur Not Detected ng/mL Cutoff: 25 76 Propoxyphene, Ur Not Detected ng/mL Cutoff: 25 77 Norpropoxyphene, Ur Not Detected ng/mL Cutoff: 25 78 Tramadol, Ur Not Detected ng/mL Cutoff: 25 79 O-desmethyltramadol, Ur Not Detected ng/mL Cutoff: 25 80 Tapentadol, Ur Not Detected ng/mL Cutoff: 25 81 N-desmethyltapentadol, Ur Not Detected ng/mL Cutoff: 50 82 Flmclqdpid-nych-lhdeohsenec, U Not Detected ng/mL 83 Buprenorphine, Ur Not Detected ng/mL Cutoff: 5 84 Norbuprenorphine, Ur Not Detected ng/mL Cutoff: 5 85 Norbuprenorphine glucuronide Not Detected ng/mL Cutoff: 20 86 Opioid Interpretation See Comment 87 THC Confirmation 07/20/2018 [facility] Urine Carboxy 312 ng/mL 88 [place] [address] THC Confirm [phone] Urine THC Interpretation Positive. 89 1 [id number] GLU Fast 77 Col: 12/22/18 1011 GLU 2HR 98 Col: 12/22/18 1211 GTT Interp Col: 12/22/18 1011 Oral Glucose Tolerance Test (OGTT) Levels applicable except during . Sample drawn 2 hours after a 75-gram glucose drink. GLUCOSE LEVEL INDICATION Less than 140 mg/dL Normal glucose tolerance From 140 to 200 mg/dL Impaired glucose tolerance Over 200 mg/dL Diabetes (on more than one testing occasion) 3 The urine specimen was tested at the listed cutoffs: Drug class test level (ng/mL) Amphetamines 500 Barbiturates 200 Benzodiazepine metabolites 200 Cocaine metabolites 150 Cannabinoids 50 Opiates 300 Pcp 25 Specimen was received without chain of custody. Results should be used for medical purposes only. 4 [id number] SEE RESULT BELOW Name: REGINA BRYSON : [address]: Ramon ALONSO Acct: [id number] Unit: [id number] AGE: 33 Location: [facility] Re10/18/18 SEX: F Status: REG REF SPEC: [id number] GABY: 10/18/18-[address] [facility] [address]: Ramon Parker [facility] REQ: [id number] RECD: 10/18/184827 STATUS: COMP _ SOURCE: CER/VAG/RE SPDESC: ORDERED: Grp B Strp Scrn COMMENTS: [id number] QUERIES: Is Patient Penicillin Allergic? Y Is patient penicillin allergic and/or sensitivities needed? Y Provider Requisition # [id number] Procedure Result Reported Site Group B Strep Culture Screen Final 10/20/18- 1151 [facility] Strep Screen Negative * [facility] - Main Lab . END OF REPORT DEPARTMENT OF PATHOLOGY, [address] [place] [address] Clement Harrison M.D. Director AGNES # [id number] REFERENCE VALUE Cutoff: 500 7 REFERENCE VALUE Cutoff: 200 8 REFERENCE VALUE Cutoff: 100 9 REFERENCE VALUE Cutoff: 150 10 ADDITIONAL INFORMATION This report is intended for use in clinical monitoring or management of patients. It is not intended for use in employment-related testing. Test Performed by: [facility] [address], [place] [address] 11 REFERENCE VALUE Cutoff: 200 mg/L 12 Tylenol 3 13 Metabolite of codeine REFERENCE VALUE Cutoff: 100 14 Suzette Richardson MS Contin; Also a minor metabolite (10%) of codeine and can be seen in low concentrations (<2,000 ng/mL) with poppy seed ingestion. 15 Metabolite of morphine REFERENCE VALUE Cutoff: 100 16 Metabolite of heroin 17 Lortab, Hawthorn, Vicodin; Also a very minor metabolite of codeine and impurity (<1%) of oxycodone. 18 Metabolite of hydrocodone 19 Metabolite of hydrocodone 20 Dilaudid, Exalgo; Also a metabolite of hydrocodone and a minor (<5%) metabolite of morphine. 21 Metabolite of hydromorphone REFERENCE VALUE Cutoff: 100 22 Endocet, Percocet, Oxycontin 23 Metabolite of oxycodone 24 Numorphan, Opana; Also a metabolite of oxycodone. 25 Metabolite of oxymorphone REFERENCE VALUE Cutoff: 100 26 Metabolite of oxymorphone 27 Actiq, Duragesic, Fentora 28 Metabolite of fentanyl 29 Demerol 30 Metabolite of meperidine 31 Narcan 32 Metabolite of naloxone REFERENCE VALUE Cutoff: 100 33 Dolophine 34 Metabolite of methadone 35 Darvon, Darvocet 36 Metabolite of propoxyphene 37 Tradol, Ultram, Ultracet 38 Metabolite of tramadol 39 Nucynta 40 Metabolite of tapentadol 41 Metabolite of tapentadol REFERENCE VALUE Cutoff: 100 42 Buprenex, Suboxone 43 Metabolite of buprenorphine 44 Metabolite of buprenorphine 45 No opioids were detected. The absence of expected drug(s) and/or drug metabolite(s) may indicate non-compliance, altered pharmacokinetics, inappropriate timing of specimen collection relative to drug administration, diluted/adulterated urine, or limitations of testing. ADDITIONAL INFORMATION This test was developed and its performance characteristics determined by [facility] in a manner consistent with CLIA requirements. This test has not been cleared or approved by the U.S. Food and Drug Administration. 46 GLU Fast 94 Col: 08/26/18 1051 GLU 1HR 193 Col: 08/26/18 1051 GLU 2HR 183 Col: 08/26/18 1051 GLU 3HR 125 Col: 08/26/18 1051 GLU Interp Col: 08/26/18 1051 GTT normal ranges for obstetrics per the [employer] (ACOG).Based on 100 gm glucose load: Fasting <95 mg/dl 1hr <180 mg/dl 2hr <155 mg/dl 3hr <140 mg/dl 47 [id number] 48 REFERENCE VALUE Cutoff: 500 49 REFERENCE VALUE Cutoff: 200 50 REFERENCE VALUE Cutoff: 100 51 REFERENCE VALUE Cutoff: 150 52 Presumptive Positive Drug confirmation to follow. Presumptive Positive means that the screening method is positive, but the test needs to be run by a confirmatory method before being finalized. ADDITIONAL INFORMATION This report is intended for use in clinical monitoring or management of patients. It is not intended for use in employment-related testing. 53 REFERENCE VALUE Cutoff: 200 mg/L 54 Tylenol 3 55 Metabolite of codeine REFERENCE VALUE Cutoff: 100 56 Suzette Richardson MS Contin; Also a minor metabolite (10%) of codeine and can be seen in low concentrations (<2,000 ng/mL) with poppy seed ingestion. 57 Metabolite of morphine REFERENCE VALUE Cutoff: 100 58 Metabolite of heroin 59 Lortab, Hawthorn, Vicodin; Also a very minor metabolite of codeine and impurity (<1%) of oxycodone. 60 Metabolite of hydrocodone 61 Metabolite of hydrocodone 62 Dilaudid, Exalgo; Also a metabolite of hydrocodone and a minor (<5%) metabolite of morphine. 63 Metabolite of hydromorphone REFERENCE VALUE Cutoff: 100 64 Endocet, Percocet, Oxycontin 65 Metabolite of oxycodone 66 Numorphan, Opana; Also a metabolite of oxycodone. 67 Metabolite of oxymorphone REFERENCE VALUE Cutoff: 100 68 Metabolite of oxymorphone 69 Actiq, Duragesic, Fentora 70 Metabolite of fentanyl 71 Demerol 72 Metabolite of meperidine 73 Narcan 74 Metabolite of naloxone REFERENCE VALUE Cutoff: 100 75 Dolophine 76 Metabolite of methadone 77 Darvon, Darvocet 78 Metabolite of propoxyphene 79 Tradol, Ultram, Ultracet 80 Metabolite of tramadol 81 Nucynta 82 Metabolite of tapentadol 83 Metabolite of tapentadol REFERENCE VALUE Cutoff: 100 84 Buprenex, Suboxone 85 Metabolite of buprenorphine 86 Metabolite of buprenorphine 87 No opioids were detected. The absence of expected drug(s) and/or drug metabolite(s) may indicate non-compliance, altered pharmacokinetics, inappropriate timing of specimen collection relative to drug administration, diluted/adulterated urine, or limitations of testing. ADDITIONAL INFORMATION This test was developed and its performance characteristics determined by [facility] in a manner consistent with CLIA requirements. This test has not been cleared or approved by the U.S. Food and Drug Administration. Test Performed by: [facility] [employer] - [address] [address] 88 REFERENCE VALUE Cutoff: 3.0 89 ADDITIONAL INFORMATION This report is intended for use in clinical monitoring and management of patients. It is not intended for use in employment-related testing. This test was developed and its performance characteristics determined by [facility] in a manner consistent with CLIA requirements. This test has not been cleared or approved by the U.S. Food and Drug Administration. Test Performed by: [facility] [employer] - [address] [address] Procedures Date Code Description Status 11/02/2018 17512 Obstetric Care Routine Completed 11/01/2018 34588 Obstetric Care Routine Completed 10/11/2018 36490 Echography Uterus Limited Completed 10/04/2018 97481 Biophysical Profile Without Non Stress Test Completed 10/04/2018 79366 Echography Uterus Follow-Up Or Repeat Completed Medical Devices Description No Information Available Encounters Type Date Location Provider Dx Diagnosis Office Visit 12/29/2018 [facility] Alfredo Matos JR, Z30.09 Encounter for oth 11:30a DO general coun and advice on contraception Office Visit 12/22/2018 [facility] Salas Chaudhary MD Z30.09 Encounter for oth 8:30a general coun and advice on contraception Assessments Date Code Description Provider 12/29/2018 Z30.09 Encounter for other general counseling Alfredo Matos JR, DO and advice on contraception 12/22/2018 Z86.32 Personal history of gestational diabetes Azul Lennon MD 12/22/2018 Z86.32 Personal history of gestational diabetes Laboratory 12/22/2018 Z30.09 Encounter for other general counseling Salas Chaudhary MD and advice on contraception 12/07/2018 Z39.2 Encounter for routine Amara Steffi Hay CNM follow-up 11/18/2018 Z39.2 Encounter for routine Salas Chaudhary MD follow-up 11/18/2018 Z39.2 Encounter for routine Laboratory follow-up 11/02/2018 O80 Encounter for full-term uncomplicated Amara Hay CNM delivery 11/02/2018 Z37.0 Single live Amara Hay ENRIQUETA 11/02/2018 Z39.0 Encounter for care and examination of Amara Hay CNM mother immediately after delivery 11/01/2018 O80 Encounter for full-term uncomplicated Amara Hay CNM delivery 11/01/2018 Z37.0 Single live Amara HayENRIQUETA 11/01/2018 Z39.0 Encounter for care and examination of Amara Hay CNM mother immediately after delivery 10/25/2018 O24.410 Gestational diabetes mellitus in GAVIN Orourke , diet controlled 10/18/2018 O24.410 Gestational diabetes mellitus in Ramon Parker [facility] , diet controlled 10/11/2018 Z34.83 Encounter for supervision of other GAVIN Santacruz normal , third trimester 10/06/2018 O32.1xx1 Maternal care for breech presentation, Salas Chaudhary MD fetus 1 10/04/2018 O24.410 Gestational diabetes mellitus in Salas Chaudhary MD , diet controlled 10/04/2018 O24.410 Gestational diabetes mellitus in Kami Dominguez CNM , diet controlled 10/04/2018 O24.410 Gestational diabetes mellitus in Zora , diet controlled 09/20/2018 O24.410 Gestational diabetes mellitus in GAVIN Chavez , diet controlled 09/06/2018 O24.410 Gestational diabetes mellitus in Silviadaniel GAVIN Hoffman , diet controlled 08/26/2018 Z36.9 Encounter for screening, Salas Chaudhary MD unspecified 08/26/2018 Z36.9 Encounter for screening, Laboratory unspecified 08/19/2018 Z36.9 Encounter for screening, Azul Lennon MD unspecified 08/19/2018 Z36.9 Encounter for screening, Laboratory unspecified 08/19/2018 Z34.83 Encounter for suprvsn of normal Carrillo Hoffman, CNM , third trimester 07/20/2018 Z34.82 Encounter for suprvsn of normal Fatuma Tam, CNM , second trimester Plan of Treatment 12/29/2018 - Alfredo Matos JR, DOZ30.09 Encounter for other general counseling and advice on contraceptionComments:Today, we again discussed the various options for long-term contraception, and she declines them all. We then discussed permanent sterilization including laparoscopic BTL and vasectomy. We reviewed the risks and benefits of each option at length. We discussed that there is surgical risk that variesby procedure, and failure risk, generally about 04/999. Pt is absolutely sure she does not want anymore children and desires to proceed with BTL.Reviewed the risks of surgery and written consent reviewed and obtained. BTL scheduled for has already signed the Medicaid consent form. Functional Status Description No Information Available Mental Status Description No Information Available Referrals Refer to Reason for Referral Status Appt Date [facility] GDM Please send records after visit. Closed [facility] [address] [facility] [place], [place] [id number] [phone]
--- OUTSIDE RECORDS SUMMARY | 2019-02-25 17:47 | XMS REPORT | Continuity of Care Document ---
:1985 External Reference #:[id number] Author Name Boston Galeas PA-C (transmitted by agent of provider Meghna Bobo) Address [address], [place] [address] Care Team Providers Name Role Phone Michele Armenta DO - Family Medicine Care Team Information Photographer Motion Picture [phone] Patient's Choice Care Team Information Photographer Motion Picture Unavailable Problems Active Problems Provider Date Bilateral carpal tunnel syndrome Spencer Calero MD Onset: 01/29/2018 Social History Type Date Description Comments Sex Unknown ETOH Use Drinks 2 Alcoholic Beverages Per Week Tobacco Use Start: Unknown Patient is a current smoker, smokes some days Recreational Drug Use Sporadically uses Marijuana Smoking Status Reviewed: 02/25/19 Patient is a current smoker, smokes some days Exercise Type/Frequency Exercises regularly Allergies, Adverse Reactions, Alerts Active Allergies Reaction Severity Comments Date Penicillin liquid form 01/29/2018 Medications Active Medications SIG Qnty Indications Ordering Provider Date Tramadol HCL 1 tablet by 15tabs Spencer Calero MD 02/03/2019 50mg mouth every 4-6 Tablets hours as needed pain Immunizations CPT Code Status Date Vaccine Lot # [id number] Given 06/04/1999 Hep B Pediatric/Adolescent 81656 Given 01/29/1999 Hep B Pediatric/Adolescent 54168 Given 01/01/1999 Hep B Pediatric/Adolescent 92803 Given 10/03/1992 Poliovirus Vaccine OPV Live Oral Use 32647 Given 10/03/1992 Measles Mumps And Rubella MMR 20315 Given 10/03/1992 DTP Vaccine Vital Signs Date Vital Result Comment 02/25/2019 3:49pm Height 67.25 inches 5'7.25" Weight 162.75 lb Heart Rate 60 /min BP Systolic 118 mmHg BP Diastolic 78 mmHg Respiratory Rate 12 /min Body Temperature 98.4 F Pain Level 9 BMI (Body Mass Index) 25.3 kg/m2 01/19/2019 9:01am Height 66 inches 5'6" Weight 170.00 lb Heart Rate 88 /min BP Systolic 98 mmHg BP Diastolic 62 mmHg Respiratory Rate 18 /min Body Temperature 97.7 F Pain Level 5 BMI (Body Mass Index) 27.4 kg/m2 Results Description No Information Available Procedures Date Code Description Status 02/17/2019 52106 Endoscopy Wrist Surg W/Release Of Transverse Carpal Completed Ligament 02/17/2019 90545 Endoscopy Wrist Surg W/Release Of Transverse Carpal Completed Ligament 02/03/2019 98296 Endoscopy Wrist Surg W/Release Of Transverse Carpal Completed Ligament 02/03/2019 38258 Endoscopy Wrist Surg W/Release Of Transverse Carpal Completed Ligament Medical Devices Description No Information Available Encounters Type Date Location Provider Dx Diagnosis Office Visit 12/07/2018 [facility] Spencer Calero, G56.03 Carpal tunnel 11:00a at [place] [facility] syndrome, bilateral upper limbs Assessments Date Code Description Provider 02/17/2019 G56.01 Carpal tunnel syndrome, right upper limb Veronica Emerson RPA-C 02/17/2019 G56.01 Carpal tunnel syndrome, right upper limb Spencer Calero MD 02/03/2019 G56.02 Carpal tunnel syndrome, left upper limb WALLACE Chandler 02/03/2019 G56.02 Carpal tunnel syndrome, left upper limb Spencer Calero MD 01/19/2019 G56.03 Carpal tunnel syndrome, bilateral upper limbs Spencer Calero MD 12/07/2018 G56.03 Carpal tunnel syndrome, bilateral upper limbs Spencer Calero MD Plan of Treatment Future Appointment(s):04/06/2019 11:00 am - Spencer Calero MD at [facility] Functional Status Description No Information Available Mental Status Description No Information Available Referrals Description No Information Available
[2019-02-25 19:19] VITALS: BP 101/66
--- NOTE | 2019-02-25 20:05 | UC ---
General HPI - HPI Summary HPI Summary: 33-year-old woman comes in with a chief complaint of depression. She had her second child 2 months ago. About one month after the delivery patient started feeling depressed. She's having a hard time concentrating. Energy level is low. She's been sleeping a lot but she still does not feel rested. She has decreased appetite. She does feel depressed. Denies any suicidal or homicidal ideation. No prior history of depression. She does live with her boyfriend and reports he and his family are supportive. She has had an argument with her own father recently which has been emotionally upsetting. She is an appointment scheduled with family and children's services counseling on March 01, 2019. No history of thyroid problems. - History of Current Complaint Chief Complaint: UCGeneralIllness Stated Complaint: DEPRESSION Time Seen by Provider: 02/25/19 19:37 Hx Last Menstrual Period: 02/07/19 has had tubal Pain Intensity: 0 - Allergy/Home Medications Allergies/Adverse Reactions: Allergies Allergy/AdvReac Type Severity Reaction Status Date / Time Penicillins Allergy Anaphylatic Verified 02/17/19 09:25 Shock PMH/Surg Hx/FS Hx/Imm Hx Previously Healthy: Yes - Surgical History Surgical History: Yes Surgery Procedure, Year, and Place: 01/14/19 BILATERAL TUBAL LIGATION [facility]. bilat carpal tunnel - Family History Known Family History: Positive: Non-Contributory - Social History Alcohol Use: Occasionally Alcohol Amount: maybe 1-2 drinks a week Substance Use Type: Marijuana Substance Use Comment - Amount & Last Used: every other day Smoking Status (MU): Light Every Day Tobacco Smoker Type: Cigarettes Amount Used/How Often: 2-4 cigs daily Length of Time of Smoking/Using Tobacco: 10 YRS Have You Smoked in the Last Year: Yes Household Exposure Type: Cigarettes - Immunization History Most Recent Influenza Vaccination: n/a Most Recent Pneumonia Vaccination: n/a Review of Systems All Other Systems Reviewed And Are Negative: Yes Constitutional: Positive: Other - SEE HPI Skin: Positive: Negative Eyes: Positive: Negative ENT: Positive: Negative Respiratory: Positive: Negative Cardiovascular: Positive: Negative Gastrointestinal: Positive: Negative Motor: Positive: Negative Neurovascular: Positive: Negative Musculoskeletal: Positive: Negative Neurological: Positive: Negative Psychological: Positive: Depressed Is Patient Immunocompromised?: No Physical Exam Triage Information Reviewed: Yes Appearance: Well-Appearing, No Pain Distress, Well-Nourished Vital Signs: Initial Vital Signs Temp 98.7 F 02/25/19 19:11 Pulse 78 02/25/19 19:11 Resp 15 02/25/19 19:11 BP 101/66 02/25/19 19:11 Pulse Ox 100 02/25/19 19:11 Vital Signs Reviewed: Yes Eye Exam: Normal Eyes: Positive: Conjunctiva Clear Neck: Positive: Supple, Other: - No thyroid enlargement on examination. Respiratory: Positive: Lungs clear, Normal breath sounds, No respiratory distress Cardiovascular: Positive: RRR Musculoskeletal: Positive: Strength Intact, ROM Intact Neurological: Positive: Alert, Muscle Tone Normal Psychological: Positive: Age Appropriate Behavior Skin Exam: Normal Course/Dx - Course Course Of Treatment: TSH is pending. Patient denies suicidal ideation or homicidal ideation. We discussed that if she did have any concerns about hurting himself she did not improve her got worse she should go the emergency department and she agreed. She reports that she does have social support with her boyfriend and his family. She lives with her boyfriend. Patient will also follow-up on March 01, 2019 with [facility] children[facility] counseling. [facility] Starting on Prozac 20 mg once a day. - Diagnoses Provider Diagnosis: Post depression Discharge ED - Sign-Out/Discharge Documenting (check all that apply): Patient Departure All imaging exams completed and their final reports reviewed: No Studies - Discharge Plan Condition: Stable Disposition: HOME Prescriptions: FLUoxetine CAP* [PROzac CAP*] 20 mg PO DAILY #30 cap Patient Education Materials: Depression (DC) Referrals: [facility] [place] [facility] [Outside] [facility] [Outside] Additional Instructions: FOLLOW UP WITH YOUR DOCTOR. GO TO THE EMERGENCY DEPARTMENT IF NOT IMPROVING OR WORSE; DEPRESSION, THOUGHTS OF HURTING YOURSELF OR OTHERS OR ANY QUESTIONS OR CONCERNS. - Billing Disposition and Condition Condition: STABLE Disposition: Home
--- NOTE | 2019-02-27 07:18 | UC ---
- Progress Note Progress Note: Please call to advise that thyroid check is negative. She was seen by Dr. Olea 02/25 and started on antidepressant for post depression (fluoxeteine). She does have mental health follow up pending on 03/01. Course/Dx - Diagnoses Provider Diagnoses: Post depression Discharge ED - Sign-Out/Discharge Documenting (check all that apply): Patient Departure All imaging exams completed and their final reports reviewed: No Studies - Discharge Plan Condition: Stable Disposition: HOME Prescriptions: FLUoxetine CAP* [PROzac CAP*] 20 mg PO DAILY #30 cap Patient Education Materials: Depression (DC) [place]: [facility] [place] [facility] [Outside] [facility] REPA[facility] [Outside] Additional Instructions: FOLLOW UP WITH YOUR DOCTOR. GO TO THE EMERGENCY DEPARTMENT IF NOT IMPROVING OR WORSE; DEPRESSION, THOUGHTS OF HURTING YOURSELF OR OTHERS OR ANY QUESTIONS OR CONCERNS. - Billing Disposition and Condition Condition: STABLE Disposition: Home
== END 2019-02-25 20:18 | disposition home or self-care (01) ==
LOC: UCCORT 17:41
DX: F53.0 Postpartum depression (principal); Z88.0 Allergy status to penicillin; F17.210 Nicotine dependence, cigarettes, uncomplicated
CPT/HCPCS: 36415; 84443; 99212; G0463